=== PATIENT | female | born 1940 | race Caucasian/White ===

== ENCOUNTER 2021-05-31 10:11 | Day surgery (SDC) | payer OTHER ==
[~2021-05-31] VITALS: Ht 160 cm; Wt 79.1 kg
[~2021-05-31 10:11] MED LIST: SODIUM CHLORIDE 0.9% 1,000 ML IV ONE
[2021-05-31 10:37] LABS: COVID AG,FIA SOURCE NASOPHARYNGEAL
[2021-05-31] MEDS ORDERED: SODIUM CHLORIDE 0.9% 1,000 ML ONE (10:39)
[2021-05-31 11:21] LABS: GLUCOMETER DEV NAME(LOC) SDS.; GLUCOSE,POINT OF CARE 97 MG/DL (70-110)
[2021-05-31] MEDS ORDERED: OXYGEN THERAPY IH SCH (20:00)
== END 2021-05-31 14:15 | disposition home or self-care (01) ==
LOC: SURGERY 10:11
PROVIDERS: ATTEND Specialist
DX: K25.9 Gastric ulcer, unspecified as acute or chronic, without hemorrhage or perforation (principal); E11.9 Type 2 diabetes mellitus without complications; I10 Essential (primary) hypertension; Z79.899 Other long term (current) drug therapy
CPT/HCPCS: 43239; 82962; 87426; C1769; C9803; J7030; 88305

== ENCOUNTER 2021-08-02 06:09 | Day surgery (SDC) | payer OTHER ==
[2021-07-31 09:24] LABS: COVID AG,FIA SOURCE NASAL SWAB
[~2021-08-02] VITALS: Ht 144.8 cm; Wt 75.4 kg
[~2021-08-02 06:09] MED LIST changes: +AMLO-258 PO; +APIX5TAB PO; +CALC-1249 PO; +CHOL25TA4 PO; +CYAN500T56 PO; +FAMO20 PO; +FERR325T23 PO; +HYDR25TA2 PO; +LEVO125T95 PO; +LISI-893 PO; +MECL-134 PO; +METF-1211 PO; +NAPR-1025 PO; +NORT25CA3 PO; +OMEP20 PO; +PROPOFOL 1% 20 ML VIAL IVP ONE; +SIME80TA82 CHEW; -SODIUM CHLORIDE 0.9% 1,000 ML IV ONE
[2021-08-02] MEDS ORDERED: SODIUM CHLORIDE 0.9% 1,000 ML IV ONE (06:30)
[2021-08-02] MEDS ORDERED: SODIUM CHLORIDE 0.9% 1,000 ML ONE (07:01)
[2021-08-02 07:31] LABS: GLUCOMETER DEV NAME(LOC) SDS.; GLUCOSE,POINT OF CARE 95 MG/DL (70-110)
[2021-08-02] MEDS ORDERED: FentaNYL CITRATE PF 100 MCG/2 ML VIAL ONE (08:45)
[2021-08-02] MEDS ORDERED: MIDAZOLAM HCL 5 MG/ML VIAL ONE (08:45)
[2021-08-02] MEDS ORDERED: OXYGEN THERAPY IH SCH (20:00)
== END 2021-08-02 11:10 | disposition home or self-care (01) ==
LOC: SURGERY 06:09
PROVIDERS: ATTEND Specialist
DX: K25.9 Gastric ulcer, unspecified as acute or chronic, without hemorrhage or perforation (principal); E11.9 Type 2 diabetes mellitus without complications; I10 Essential (primary) hypertension; D64.9 Anemia, unspecified; E78.5 Hyperlipidemia, unspecified; K59.00 Constipation, unspecified; Z79.899 Other long term (current) drug therapy; Z87.11 Personal history of peptic ulcer disease; Z98.890 Other specified postprocedural states
CPT/HCPCS: 43239; 82962; 87426; 93005; C1769; C9803; J2704; J7030; J2250; J3010